=== PATIENT | male | born 1955 | race Caucasian/White ===

== ENCOUNTER 2019-07-17 03:00 | Observation (INO) ==
[2019-07-17] MEDS ORDERED: Aspirin 81 MG TAB.CHEW PO ONE (03:15)
--- NOTE | 2019-07-17 03:16 | Emergency Department Note ---
Disposition Clinical Impression: Chest pain Qualifiers: Chest pain type: unspecified Qualified Code(s): R07.9 - Chest pain, unspecified Disposition: Admitted As Inpatient Condition: Fair Time of Disposition: 05:59 Chest Pain HPI - General Chief Complaint: ED Chest Pain Stated Complaint: chest pain Time Seen by Provider: 07/17/19 03:05 Source: patient, family, EMS Mode of arrival: EMS Limitations: no limitations Vital Signs Reviewed: Yes Nursing Notes Reviewed: Yes - History of Present Illness HPI Narrative: 63-year-old male presents for evaluation of chest pain. Has history of Parkinson's. Says the pain is substernal nonradiating. 2 days ago on July 15 he had episode of chest pain that took him to the ground. He felt better and did not want to come to the emergency room. His states he has a significant history of anxiety. Patient had a Eileen procedure several years ago and his reflux has been improved since then. He states is not anything spicy or greasy for dinner but had a bowl of cereal. He denies any diaphoresis or shortness of breath. Pt complaint: chest pain Duration: constant Severity: moderate Severity scale (1-10): 5 Associated symptoms: Denies: nausea, vomiting, diaphoresis, dyspnea Treatments prior to arrival chest pain: aspirin (via EMS) - Related Data Home Medications Medication Instructions Recorded Confirmed Allopurinol [Zyloprim 100 MG] 100 mg PO BID 01/31/16 01/27/19 Amitriptyline [Elavil] 75 mg PO HS 01/31/16 01/27/19 Aspirin [Adult Low Dose Aspirin EC] 81 mg PO QPM 01/31/16 01/27/19 Escitalopram [Lexapro] 20 mg PO DAILY 01/31/16 01/27/19 Fluticasone Propionate Nasal 100 mcg NS QPM 01/31/16 01/27/19 [Flonase] LORazepam [Ativan] 1 mg PO TID 01/31/16 01/27/19 Losartan Potassium [Cozaar] 100 mg PO DAILY 01/31/16 01/27/19 Pantoprazole Sodium 40 mg PO BID 10/18/17 01/27/19 Carbidopa/Levodopa 25/100 [Sinemet 0.5 each PO 08,14,20 01/27/19 01/27/19 25/100] Previous Rx's Medication Instructions Recorded Ondansetron ODT [Zofran ODT] 4 mg SL Q6HR PRN #30 tab.rapdis 10/19/17 Fluconazole [Diflucan] 100 mg PO DAILY #7 tablet 01/29/19 Nystatin [Nystatin Suspension] 5 ml PO QID #120 ml 01/29/19 Allergies Allergy/AdvReac Type Severity Reaction Status Date / Time bee venom protein (honey bee) Allergy Anaphylaxis Verified 07/17/19 04:05 codeine Allergy Nausea Verified 07/17/19 04:05 All systems ED: reviewed and negative except as stated. Constitutional: Denies: fever, chills, weakness, weight change Eyes: Denies: eye pain, eye discharge, vision change ENT ED: Denies: ear pain, throat pain, dental pain, hearing loss, epistaxis, congestion, dysphagia Cardiovascular: Reports: chest pain. Denies: palpitations, dyspnea on exertion, edema, syncope Respiratory: Denies: cough, dyspnea, wheezes, hemoptysis, stridor Gastrointestinal: Denies: abdominal pain, nausea, vomiting, diarrhea, constipation, hematemesis, melena, hematochezia Genitourinary: Denies: urgency, dysuria, frequency, hematuria Musculoskeletal: Denies: back pain, neck pain, arthralgia, myalgia Integumentary: Denies: rash, abrasion, lesions Neurological: Denies: headache, weakness, numbness, paresthesias, confusion, abnormal gait, vertigo Psychiatric: Denies: anxiety, depression, suicidal thoughts, homicidal thoughts, auditory hallucinations, visual hallucinations Endocrine: Denies: fatigue Hematological/Lymphatic: Denies: easy bleeding, easy bruising Allergic/Immunologic: Denies: facial swelling, urticaria Chest Pain PMH - Past Medical History Medical history: Reports: GERD, hyperlipidemia, hypertension, other Surgical history: Reports: knee replacement Psychiatric history: Reports: anxiety, depression - Social History Smoking Status: Never smoker Alcohol use: Reports: none Drug use: Reports: none Physical Exam - General Limitations: no limitations General appearance: alert - Head Head exam: atraumatic, normocephalic, normal inspection - Eye Eye exam: Present: normal appearance, PERRL, EOMI - ENT ENT exam: normal exam, normal oropharynx, mucous membranes moist - Neck Neck exam: Present: normal inspection, full ROM, trachea midline - Respiratory Respiratory exam: Present: normal lung sounds bilaterally. Absent: respiratory distress - Cardiovascular Cardiovascular exam: Present: regular rate, normal rhythm, normal heart sounds - Abdominal Exam Abdominal exam: Present: soft, Non-Tender. Absent: tenderness, distention, guarding, rebound, rigidity - Extremities Exam Extremities exam: Present: normal inspection, full ROM. Absent: tenderness, pedal edema - Back Exam Back exam: Present: normal inspection, full ROM. Absent: tenderness, CVA tenderness (R), CVA tenderness (L) - Neurological Exam Neurological exam: Present: alert, oriented X3, CN II-XII intact - Psychiatric Psychiatric exam: Present: normal affect, normal mood. Absent: depressed - Skin Skin exam: Present: warm, dry, intact, normal color Course Course Narrative: Patient was placed in examination room, H&P obtained, nurse's notes reviewed. Patient's pain was down to 34 upon arrival. He oriented aspirin in route by EMS. Patient was given 3 additional J glycerin sublingual and his pain completely resolved. He has a history of reflux in the past with a Eileen procedure also given Pepcid 20 mg IV push. Patient EKG did not show any significant abnormalities. Troponin was normal. Patient admitted to the hospital for further observation and treatment. To Dr. Workman - Consultations Consultation #1: Dr. Workman will admit the patient. Time: 06:00 Vital Signs Temperature 98.0 F 07/17/19 03:06 Pulse Rate 82 07/17/19 03:06 Respiratory Rate 16 07/17/19 03:06 Blood Pressure 166/101 07/17/19 03:06 O2 Sat by Pulse Oximetry 99 07/17/19 03:06 Temperature 98.0 F 07/17/19 03:06 Pulse Rate 81 07/17/19 03:58 Respiratory Rate 15 07/17/19 03:58 Blood Pressure 124/87 07/17/19 03:58 O2 Sat by Pulse Oximetry 97 07/17/19 03:58 Oxygen Delivery Oxygen Delivery Room Air Chest Pain - Medical Records Medical records reviewed: Yes I reviewed the patient's medical records. - Lab Data Lab results reviewed: Yes I reviewed the patient's lab results. Result diagrams: 07/17/19 03:00 07/17/19 03:00 Lab Results 07/17/19 07/17/19 07/17/19 Range/Units 03:00 03:00 03:00 WBC 8.6 (4.3-11.1) K/mcL RBC 4.50 (4.19-5.50) M/mcL Hgb 14.3 (12.9-16.9) g/dL Hct 41.5 (37.5-50.1) % MCV 92.2 (83.0-100.0) fL MCH 31.8 (28.0-33.3) pg MCHC 34.5 (31.6-35.5) g/dL RDW 12.2 (11.5-14.5) % Plt Count 277 (140-400) K/mcL MPV 9.2 L (9.4-12.4) fL Immature Gran % 0.2 (0-4) % Seg Neutrophils % 57.1 % Lymphocytes % 31.9 % Monocytes % 7.9 % Eosinophils % 2.2 % Basophils % 0.7 % Neutrophils # 4.9 (1.6-8.9) K/mcL Lymphocytes # 2.8 (0.6-4.6) K/mcL Monocytes # 0.7 (0.0-1.3) K/mcL Eosinophils # 0.2 (0.0-0.6) K/mcL Basophils # 0.1 (0.0-0.2) K/mcL PT 11.5 (9.4-12.1) Seconds INR 1.0 APTT 31.0 (26.0-36.0) Seconds Sodium (136-145) mEq/L Potassium (3.5-5.1) mEq/L Chloride (98-107) mEq/L Carbon Dioxide (23-29) mEq/L BUN (8-23) mg/dL Creatinine (0.70-1.30) mg/dL Est GFR ( Amer) (> 60) Est GFR (Non-Af Amer) (> 60) BUN/Creatinine Ratio (6-26) Glucose (70-105) mg/dL Calculated Osmolality (280-300) Calcium (8.6-10.3) mg/dL Troponin I (< 0.04) ng/mL B-Natriuretic Peptide 50 (Less than 100) pg/mL Lipase (11-82) Units/L Urine Color (Yellow) Urine Clarity (Clear) Urine pH (5.0-8.0) pH Units Ur Specific [place] (1.010-1.025) Urine Protein (Neg-Trace) mg/dL Urine Glucose (UA) (Normal) mg/dL Urine Ketones (Negative) mg/dL Urine Blood (Negative) Urine Nitrite (Negative) Urine Bilirubin (Negative) Urine Urobilinogen (Normal) mg/dL Ur Leukocyte Esterase (Negative) Ur Culture Indicated? (NO) 07/17/19 07/17/19 Range/Units 03:00 03:39 WBC (4.3-11.1) K/mcL RBC (4.19-5.50) M/mcL Hgb (12.9-16.9) g/dL Hct (37.5-50.1) % MCV (83.0-100.0) fL MCH (28.0-33.3) pg MCHC (31.6-35.5) g/dL RDW (11.5-14.5) % Plt Count (140-400) K/mcL MPV (9.4-12.4) fL Immature Gran % (0-4) % Seg Neutrophils % % Lymphocytes % % Monocytes % % Eosinophils % % Basophils % % Neutrophils # (1.6-8.9) K/mcL Lymphocytes # (0.6-4.6) K/mcL Monocytes # (0.0-1.3) K/mcL Eosinophils # (0.0-0.6) K/mcL Basophils # (0.0-0.2) K/mcL PT (9.4-12.1) Seconds INR APTT (26.0-36.0) Seconds Sodium 131 L (136-145) mEq/L Potassium 3.9 (3.5-5.1) mEq/L Chloride 94 L (98-107) mEq/L Carbon Dioxide 31 H (23-29) mEq/L BUN 6 L (8-23) mg/dL Creatinine 1.01 (0.70-1.30) mg/dL Est GFR ( Amer) > 60 (> 60) Est GFR (Non-Af Amer) > 60 (> 60) BUN/Creatinine Ratio 6 (6-26) Glucose 100 (70-105) mg/dL Calculated Osmolality 270 L (280-300) Calcium 9.7 (8.6-10.3) mg/dL Troponin I < 0.03 (< 0.04) ng/mL B-Natriuretic Peptide (Less than 100) pg/mL Lipase 10 L (11-82) Units/L Urine Color Yellow (Yellow) Urine Clarity Clear (Clear) Urine pH 7.5 (5.0-8.0) pH Units Ur Specific [place] 1.009 L (1.010-1.025) Urine Protein Negative (Neg-Trace) mg/dL Urine Glucose (UA) Normal (Normal) mg/dL Urine Ketones Negative (Negative) mg/dL Urine Blood Negative (Negative) Urine Nitrite Negative (Negative) Urine Bilirubin Negative (Negative) Urine Urobilinogen Normal (Normal) mg/dL Ur Leukocyte Esterase Negative (Negative) Ur Culture Indicated? NO (NO) - Radiology Data Radiology results reviewed: Yes I reviewed the patient's radiology results. KUB X-Ray 07/17/19 03:44 IMPRESSION: No significant stool volume. D/ / Charli Ricci / Charli Ricci Interpreting Provider: Charli Ricci Chest X-Ray 07/17/19 03:49 IMPRESSION: No acute findings. D/ / Charli Ricci / Charli Ricci Interpreting Provider: Charli Ricci - EKG Data EKG attestation: Yes I reviewed and interpreted this EKG. EKG results narrative: EKG is reviewed and interpreted by me normal sinus 1 beats minute left axis, no acute ST elevations normal MS interval, interventricular conduction delay noted No acute ST elevations Heart Score - Score History: Moderately Suspicious EKG: Normal Age: 45-65 Risk Factors: No risk factors known Troponin: Less than normal limit HEART Score Total: 2 Critical Care Time Critical Care Time: Yes Total Critical Care Time: 30 Attestation: KUB X-Ray 07/17/19 03:44 IMPRESSION: No significant stool volume. D/ / Charli Ricci / Charli Ricci Interpreting Provider: Charli Ricci Chest X-Ray 07/17/19 03:49 IMPRESSION: No acute findings. D/ / Charli Ricci / Charli Ricci Interpreting Provider: Charli Ricci The high probability of a clinically significant, sudden or life threatening deterioration of the patient's condition required my full and direct attention, intervention and personal management.
[2019-07-17] MEDS ORDERED: Nitroglycerin 0.4 MG TAB.SUBL SL ONE (03:25)
[2019-07-17 03:30] LABS: Basophils # 0.1 K/mcL (0.0-0.2); Basophils % 0.7 %; Eosinophils # 0.2 K/mcL (0.0-0.6); Eosinophils % 2.2 %; Hematocrit 41.5 % (37.5-50.1); Hemoglobin 14.3 g/dL (12.9-16.9); Immature Granulocytes % 0.2 % (0-4); Lymphocytes # 2.8 K/mcL (0.6-4.6); Lymphocytes % 31.9 %; Mean Corpuscular HGB Conc 34.5 g/dL (31.6-35.5); Mean Corpuscular Hemoglobin 31.8 pg (28.0-33.3); Mean Corpuscular Volume 92.2 fL (83.0-100.0); Mean Platelet Volume 9.2 fL (9.4-12.4); Monocytes # 0.7 K/mcL (0.0-1.3); Monocytes % 7.9 %; Neutrophils # 4.9 K/mcL (1.6-8.9); Platelet Count 277 K/mcL (140-400); Red Cell Distribution Width 12.2 % (11.5-14.5); Segmented Neutrophils % 57.1 %; White Blood Count 8.6 K/mcL (4.3-11.1)
[2019-07-17 03:42] LABS: Prothrombin Time 11.5 Seconds (9.4-12.1)
[2019-07-17 03:52] LABS: BUN/Creatinine Ratio 6 (6-26); Blood Urea Nitrogen 6 mg/dL (8-23); Calcium 9.7 mg/dL (8.6-10.3); Carbon Dioxide 31 mEq/L (23-29); Chloride 94 mEq/L (98-107); Glucose 100 mg/dL (70-105); Lipase 10 Units/L (11-82); Osmolality,Calculated 270 (280-300); Potassium 3.9 mEq/L (3.5-5.1); Sodium 131 mEq/L (136-145); eGFR For African Americans > 60 (> 60); eGFR For Non-African Americans > 60 (> 60)
[2019-07-17 03:52] LABS: Bilirubin,Urine Negative (Negative); Blood,Urine Negative (Negative); Clarity,Urine Clear (Clear); Color,Urine Yellow (Yellow); Glucose,Urine (UA) Normal (Normal); Ketones,Urine Negative (Negative); Leukocyte Esterase,Urine Negative (Negative); Nitrite,Urine Negative (Negative); PH,Urine 7.5 pH Units (5.0-8.0); Protein,Urine Negative (Neg-Trace); Specific Gravity,Urine 1.009 (1.010-1.025); Urobilinogen,Urine Normal (Normal)
[2019-07-17 03:53] LABS: Troponin I < 0.03 ng/mL (< 0.04)
[2019-07-17] MEDS ORDERED: Famotidine 20 MG/2 ML VIAL IVP ONE (04:05)
[2019-07-17] MEDS ORDERED: Nitroglycerin 1 INCH/GM PACKET TP ONE (05:57)
[2019-07-17] MEDS ORDERED: *HR* Promethazine 25 MG/ML VIAL IVP PRN (07:42)
[2019-07-17] MEDS ORDERED: Ondansetron 4 MG/2 ML VIAL IVP PRN (07:42)
[2019-07-17] MEDS ORDERED: Naloxone 0.4 MG/ML INJ IVP PRN (07:42)
[2019-07-17] MEDS ORDERED: Acetaminophen 325 MG TABLET PO PRN (07:42)
[2019-07-17] MEDS ORDERED: traMADol 50 MG TABLET PO PRN (07:42)
[2019-07-17] MEDS ORDERED: Mag Hydrox/Al Hydrox/Simeth 30 ML UDC PO PRN (07:42)
--- NOTE | 2019-07-17 07:54 | Internal Med History&Physical ---
Date of Encounter: 07/17/19 Time of Encounter: 07:46 Internal Medicine - H&P: HPI Admitted From: Home Plans for Post Hospital Care: Home History of present illness: Mr. Cuevas is a 63 year old male with past medical history significant for hyperten clary, hyperlipidemia, GERD status post Eileen procedure, Parkinson's disease, and anxiety presented with chest pain. It is started about 2 days ago, located at the middle of the chest, burning like, intermittent, last about several hours and then resolved by itself, 4 to 5 out of 10 in intensity, nonradiating, no obvious alleviating or aggravating factors. Patient reported history of GERD, he underwent Eileen procedure one half years ago which partially relieved heartburn, in addition, he also takes PPI at home. reported patient had a history of anxiety, he takes Ativan 3 times a day at home. Patient reported absence of fever, chills, or night sweats. He has no shortness of breath, palpitation, or lightheadedness. In the ED, patient vital signs were stable, labs were unremarkable including negative troponin, EKG has no acute ST-T change, chest x-ray was unremarkable. He received 1 dose of aspirin and a nitroglycerin, patient reported nitroglycerin resolved chest pain. His symptoms are concerning for ACS, therefore, he was admitted for further evaluation and management. CODE STATUS discussed with patient, he will be full code while in the hospital. Past Med Surg Social Fam HX - Past Medical History Medical history: GERD, hyperlipidemia, hypertension, other Additional medical history: PARKINSONS Psychiatric history: anxiety, depression - Past Surgical History Surgical History: knee replacement Additional surgical history: Back Surgery - Social History Smoking Status: Never smoker Smokeless Tobacco Status: No Alcohol use: none Drug use: none - Family History Mother Living Status: Hx Family Cancer: Yes Father Living Status: Hx Family Cardiac Disorders: Yes (hypertension, cardiomegaly) Hx Family Cancer: Yes Internal Medicine - H&P: Meds Allopurinol [Zyloprim 100 MG] 100 mg PO BID 01/31/16 [History] Amitriptyline [Elavil] 75 mg PO HS 01/31/16 [History] Aspirin [Adult Low Dose Aspirin EC] 81 mg PO QPM 01/31/16 [History] Escitalopram [Lexapro] 20 mg PO DAILY 01/31/16 [History] Fluticasone Propionate Nasal [Flonase] 100 mcg NS QPM 01/31/16 [History] LORazepam [Ativan] 1 mg PO TID 01/31/16 [History] Losartan Potassium [Cozaar] 100 mg PO DAILY 01/31/16 [History] Pantoprazole Sodium 40 mg PO BID 10/18/17 [History] Ondansetron ODT [Zofran ODT] 4 mg SL Q6HR PRN #30 tab.rapdis 10/19/17 [Rx] Carbidopa/Levodopa 25/100 [Sinemet 25/100] 0.5 each PO 08,14,20 01/27/19 [History] Fluconazole [Diflucan] 100 mg PO DAILY #7 tablet 01/29/19 [Rx] Nystatin [Nystatin Suspension] 5 ml PO QID #120 ml 01/29/19 [Rx] Allergy/AdvReac Type Severity Reaction Status Date / Time bee venom protein (honey bee) Allergy Anaphylaxis Verified 07/17/19 04:05 codeine Allergy Nausea Verified 07/17/19 04:05 All Systems PM: A 10-system review of systems was performed and is negative for pertinent findin gs except as documented above in the HPI. Review of systems: REVIEW OF SYSTEMS: CONSTITUTIONAL: No weight loss, fever, chills, weakness or fatigue. HEENT: Eyes: No visual loss, blurred vision, double vision or yellow sclerae. Ears, Nose, Throat: No hearing loss, sneezing, congestion, runny nose or sore throat. SKIN: No rash or itching. CARDIOVASCULAR: see HPI. RESPIRATORY: No shortness of breath, cough or sputum. GASTROINTESTINAL: No anorexia, nausea, vomiting or diarrhea. No abdominal pain or blood. GENITOURINARY: No dysuria, urgency, or frequency. NEUROLOGICAL: No headache, dizziness, syncope, paralysis, ataxia, numbness or tingling in the extremities. No change in bowel or bladder control. MUSCULOSKELETAL: No muscle, back pain, joint pain or stiffness. HEMATOLOGIC: No anemia, bleeding or bruising. LYMPHATICS: No enlarged nodes. No history of splenectomy. PSYCHIATRIC: No history of depression or anxiety. ENDOCRINOLOGIC: No reports of sweating, cold or heat intolerance. No polyuria or polydipsia. - Constitutional Vitals: Temp Pulse Resp BP Pulse Ox 98.1 F 76 18 152/94 96 07/17/19 07:29 07/17/19 07:29 07/17/19 07:29 07/17/19 07:29 07/17/19 07:29 General appearance: Present: A&O X 3 Exam: PHYSICAL EXAMINATION: GENERAL APPEARANCE: The patient is alert, oriented and in no acute distress. HEENT: Head is normocephalic. The sinuses are nontender. Pupils are equal and reactive. The nares are patent. Oropharynx clear without lesions. NECK: Supple without lymphadenopathy. HEART: Regular rate and rhythm. LUNGS: No crackles or wheezes are heard. ABDOMEN: Soft, nontender, nondistended with good bowel sounds heard. Inguinal area is normal. EXTREMITIES: Without cyanosis, clubbing or edema. NEUROLOGICAL: Gross nonfocal. SKIN: Warm and dry without any rash. Internal Med - H&P Results - Labs CBC & Chem 7: 07/17/19 03:00 07/17/19 03:00 Labs: Short CBC 07/17/19 Range/Units 03:00 WBC 8.6 (4.3-11.1) K/mcL Hgb 14.3 (12.9-16.9) g/dL Hct 41.5 (37.5-50.1) % Plt Count 277 (140-400) K/mcL Neutrophils # 4.9 (1.6-8.9) K/mcL BMP 07/17/19 03:00 Sodium 131 L Potassium 3.9 Chloride 94 L Carbon Dioxide 31 H BUN 6 L Creatinine 1.01 Glucose 100 Calcium 9.7 Cardiac Enzymes 07/17/19 Range/Units 03:00 Troponin I < 0.03 (< 0.04) ng/mL Urine 07/17/19 Range/Units 03:39 Urine Color Yellow (Yellow) Urine Clarity Clear (Clear) Urine pH 7.5 (5.0-8.0) pH Units Ur Specific [place] 1.009 L (1.010-1.025) Urine Protein Negative (Neg-Trace) mg/dL Urine Glucose (UA) Normal (Normal) mg/dL - Impressions ITS Impressions KUB X-Ray 07/17/19 03:44 IMPRESSION: No significant stool volume. D/ / Charli Ricci / Charli Ricci Interpreting Provider: Charli Ricci Chest X-Ray 07/17/19 03:49 IMPRESSION: No acute findings. D/ / Charli Ricci / Charli Ricci Interpreting Provider: Charli Ricci - Assessment and Plan (1) Chest pain Current Visit: Yes Status: Acute Assessment and plan: The characteristic of the chest pain is not typical for ACS, however, due to his CV risk factors, we will pursue cardiac workup including serial troponin, echocardiogram, and stress nuclear test. Patient received 1 dose of aspirin, he takes daily aspirin at home, we will continue. We will continue telemetry monitoring, and EKG as needed. Qualifiers: Chest pain type: unspecified Qualified Code(s): R07.9 - Chest pain, unspecified (2) Anxiety Current Visit: No Status: Chronic Assessment and plan: Anxiety might play a role in her chest pain, will continue home medication was verified, continue monitoring. (3) GERD (gastroesophageal reflux disease) Current Visit: No Status: Chronic Assessment and plan: Continue PPI. Qualifiers: Esophagitis presence: without esophagitis Qualified Code(s): K21.9 - Gastro -esophageal reflux disease without esophagitis (4) Major depressive disorder, recurrent severe without psychotic features Current Visit: No Status: Acute Assessment and plan: denies suicidal ideation, continue home medications. (5) HTN (hypertension) Current Visit: No Status: Chronic Assessment and plan: Continue monitoring BP, continue home medication. Qualifiers: Hypertension type: unspecified Qualified Code(s): I10 - Essential (primary) hypertension (6) DVT prophylaxis Current Visit: Yes Status: Acute Assessment and plan: Heparin subcutaneous. - Time Spent With Patient Total time spent is greater than 50% in coordination of care (as documented) at patient's floor/unit and/or counseling patient: Greater than 35 minutes
[2019-07-17] MEDS ORDERED: Regadenoson 0.4 MG/5 ML SYRINGE IVP ONE (08:17)
[2019-07-17 09:01] LABS: Chol/HDL Ratio 4.1 (0-4.9)
[2019-07-17] MEDS: *HR* LORazepam 1 MG TABLET PO PRN ×2 (09:47→20:50)
--- NOTE | 2019-07-17 17:18 | Acute Care Surgery Event Note ---
Date of Encounter: 07/17/19 Time of Encounter: 17:05 Pt with history of Eileen in 09/2017. His follow-up UGI was consistent with expected postoperative findings. KUB and CXR 07/17/2019 do not have any findings of hiatal hernia. He was admitted for burning CP and underwent a stress test today which was positive for a small mild intensity apical perfusion defect. He states symptoms have presently resolved. He denies trouble swallowing, heartburn, or reflux. He states he has had worsening BP and anxiety since being diagnosed with Parkinson's and has had constipation for the last several months. Per patient report, he told the hospitalist that he wanted his Eileen reversed because of the constipation. Surgery was asked to see the patient. Upon my assessment and review with patient he reports admission to the hospital for an acute episode of burning chest pain for which he underwent a stress test. He reports severe anxiety and increase in use of lorazepam related. His son is at bedside and endorses pt's statements. Pt states no difficulty swallowing, heartburn, reflux, abdominal pain, nausea, or vomiting. He does endorse constipation. He does not follow a bowel regimen. Reviewed with patient and family that he does not have any complaints related to a possible Eileen complication and therefore any acute intervention is not indicated. Further reviewed that he has no indication for a Eileen revision at this time and risk of procedure would outweigh any perceived benefit of relief of constipation. IF in the future he would have any difficulties swallowing, abdominal pain, or painful swallowing he is advised he can follow up as an outpatient with general surgery. He would need to make an appointment with either Dr. Perry, James, or Sejal as Dr. Scales is no longer seeing general surgery patients 2/2 acute care. Surgery will sign off.
[2019-07-17] MEDS ORDERED: Ondansetron ODT 4 MG TAB.RAPDIS SL PRN (17:24)
--- NOTE | 2019-07-17 17:47 | Electrocardiograph Report ---
[address] [address] Test Date: 2019-07-17 Pat Name: Kwame Cuevas Department: EXAM3 Room: 3B Gender: M Application Support Developer: : 1955 Requested By: [id number] Order Number: [id number] Reading MD: Phillip Nash Measurements Intervals [place] Rate: 81 P: -27 [place]: 163 QRS: -19 QRSD: 115 T: 28 QT: 398 QTc: 462 Interpretive Statements Sinus rhythm Nonspecific intraventricular conduction delay Electronically Signed On 07-17-2019 17:45:34 EDT by Phillip Nash
[2019-07-17] MEDS ORDERED: Aspirin Enteric Coated 81 MG Tablet PO SCH (18:00)
[2019-07-17] MEDS ORDERED: Fluticasone Propionate Nasal 50 MCG/SPRAY BOTTLE NS SCH (18:00)
[2019-07-17] MEDS: *HR* Heparin 5,000 UNIT/ML VIAL SQ SCH (18:41)
[2019-07-17] MEDS: *HR* HYDROcodone/Acet 7.5/325 mg TABLET PO PRN (18:42)
[2019-07-18] MEDS: *HR* Heparin 5,000 UNIT/ML VIAL SQ SCH (06:04)
[2019-07-18] MEDS: *HR* LORazepam 1 MG TABLET PO PRN (06:42)
[2019-07-18 08:03] VITALS: BP 154/96
[2019-07-18] MEDS: *HR* HYDROcodone/Acet 7.5/325 mg TABLET PO PRN (08:48)
[2019-07-18] MEDS ORDERED: [UNRECOGNIZED DRUG - OTHER] PO SCH (09:00)
[2019-07-18] MEDS ORDERED: CASCARA SAGRADA PO SCH (09:00)
--- NOTE | 2019-07-18 09:49 | Cardiology Consult Note ---
<Barbara Hagan - Last Filed: 07/18/19 09:44> Date of Encounter: 07/18/19 Time of Encounter: 08:30 Assessment and Plan (1) Atypical chest pain Current Visit: Yes Status: Acute Per cardiology: -Admitted with atypical chest pain. -Reports able to use stationary bike for 25 minutes without angina. -NO acute ECG changes noted. -Troponins negative. -TTE with LVEF preserved, no SWMA> -Stress test with small sized, mild intensity apical perfusion defect possibly related to mild ischemia (SDS 2). -Denies current chest pain. -On asa, BB. -With atypical chest pain and mildly abnormal stress test, recommend medical mangement. -Will add statin. -Cardiology will sign off, will arrange outpatient follow up. (2) Abnormal stress test Current Visit: Yes Status: Acute Per cardiology: -See chest pain Discussion w patient/family: The assessment and plan as outlined above was discussed with the patient who expressed understanding and agreement. All questions were answered. Thank you for involving us in the care of your patient. Please call with any questions. Discussed and reviewed with Dr.John Osullivan. History of Present Illness Consult date: 07/17/19 Requesting physician: Elba Ritter Consult reason: abnormal stress test Chief complaint: chest burning History of present illness: Mr. Cuevas is a 63 year old male with a relevant past medical history of GERD, gastritis, gout, HTN, HLD, depression, anxiety, MARIO on CPAP, who was admitted with chest burning. Patient underwent stress test, which is mildly abnormal. Patient states he had chest burning while laying in bed. Patient states symptoms are similar to his previous GERD. Patient denies exertional angina. Reports able to use stationary bike for 25 minutes, without anginal symptoms. Patient deneis current chest pain or burning. Patient denies shortness of breath or fatigue. Past Med Surg Social Fam HX - Past Medical History Attestation: Yes The following information was validated with the patient. Source: patient, old records reviewed Medical history: GERD, hyperlipidemia, hypertension, other Additional medical history: PARKINSONS Psychiatric history: anxiety, depression - Past Surgical History Surgical History: knee replacement Additional surgical history: Back Surgery - Social History Smoking Status: Never smoker Smokeless Tobacco Status: No Alcohol use: none Drug use: none - Family History Mother Living Status: Hx Family Cancer: Yes Father Living Status: Hx Family Cardiac Disorders: Yes (hypertension, cardiomegaly) Hx Family Cancer: Yes Medications and Allergies Allopurinol [Zyloprim 100 MG] 100 mg PO DAILY 01/31/16 [History] Escitalopram [Lexapro] 20 mg PO DAILY 01/31/16 [History] Fluticasone Propionate Nasal [Flonase] 1 - 2 spr NS QPM 01/31/16 [History] LORazepam [Ativan] 1 mg PO TID 01/31/16 [History] Pantoprazole Sodium 40 mg PO BID 10/18/17 [History] Aromatic Cascara Fluid Extract [Cascara Sagrada] 1 cap PO DAILY 07/17/19 [History] Clomipramine HCl 75 - 150 mg PO HS 07/17/19 [History] DiphenhydraMINE [Benadryl] 25 mg PO Q6HR PRN 07/17/19 [History] Hydrocodone/Acetaminophen [Hydrocodone-Acetamin 7.5-300] 1 each PO Q6HR PRN 07/17/19 [History] Ondansetron ODT [Zofran ODT] 4 mg SL Q8HR PRN 07/17/19 [History] Propranolol [Inderal] 10 mg PO TID 07/17/19 [History] Amitriptyline HCl 75 mg PO HS 07/18/19 [History] Aspirin [Lo-Dose Aspirin EC] 81 mg PO QPM 07/18/19 [History] Atorvastatin [Lipitor] 40 mg PO HS #30 tablet 07/18/19 [Rx] Allergy/AdvReac Type Severity Reaction Status Date / Time bee venom protein (honey bee) Allergy Anaphylaxis Verified 07/17/19 04:05 codeine Allergy Nausea Verified 07/17/19 04:05 All Systems Review: The remainder of the systems were reviewed and are negative - Cardiovascular Cardiovascular: as per HPI, chest pain at rest Physical Examination Vital Signs, Last 4 Hours Temp Pulse Resp BP Pulse Ox 07/18/19 07:58 98.1 F 84 15 154/96 97 General: Conversant, No Apparent Distress HEENT: Atraumatic, Normocephaly, Mucus Membranes Moist Neck: No JVD, Normal carotid pulses Cardiac: Reg Rate and Rhythm, Normal S1 and S2, No Murmur Lungs: Normal Breath Sounds, No Wheeze, Rales, Rhonchi Neuro: Alert and responsive, No focal deficits noted Abdomen: Soft, Non-Tender Skin: No rashes noted on visualized skin Musculoskeletal: No Chest Wall Tenderness Extremities: No Clubbing, No Cyanosis, No Edema, Normal Pulses Results 07/17/19 03:00 07/17/19 03:00 Lab Results Impressions Echocardiogram 07/17/19 17:53 Impressions: LVEF 50-55%. Normal LV chamber size, wall thickness and function. Atypical septal motion consistent with bundle branch block. Indeterminate diastolic function. Normal right ventricular structure and function. No evidence of pulmonary hypertension. Interatrial septum is hyperdynamic. There is a small PFO with a right to left shunt with agitated saline. Left Ventricular Wall Motion: Rest Echo Findings All wall segments showed normal motion. Findings: Study Quality * Technically adequate exam. ECG Findings * Sinus rhythm with BBB. Left Ventricle * LVEF 50-55%. * Normal LV chamber size, wall thickness and function. * Atypical septal motion consistent with bundle branch block. * Indeterminate diastolic function. Right Ventricle * Normal right ventricular structure and function. Left Atrium * Normal left atrial size. Right Atrium * Normal right atrial size. Interatrial Septum * Interatrial septum is hyperdynamic. There is a small PFO with agitated saline. Aortic Valve * Trileaflet aortic valve with normal function. * No aortic stenosis. * No aortic regurgitation. Mitral Valve * Normal mitral valve structure and function. * No mitral regurgitation. * No mitral stenosis. Tricuspid Valve * Normal tricuspid valve structure and function. * Trace tricuspid regurgitation. * No evidence of pulmonary hypertension. Pulmonic Valve * Normal pulmonic valve structure and function. * Trace pulmonic regurgitation. Aorta * Normally sized aortic root. Pericardium * The pericardium appears normal. IVC * Normal IVC dimensions and inspiratory collapse. Pulmonary Artery * Normal visualized portions of the main pulmonary artery. Active Medications Acetaminophen (Tylenol) 650 mg PO Q6HR PRN PRN Reason: Mild Pain/Fever Stop: 01/16/20 07:43 Hydrocodone Bitart/Acetaminophen (Jackson 7.5-325 Mg) 1 tab PO Q6HR PRN PRN Reason: SEVERE PAIN Last Admin: 07/18/19 08:48 Dose: 1 tab Documented by: Al Hydrox/Mg Hydrox/Simethicone (Maalox) 15 ml PO Q6HR PRN PRN Reason: Dyspepsia Stop: 01/16/20 07:43 Allopurinol (Zyloprim) 100 mg PO DAILY [facility] Stop: 01/17/20 09:01 Last Admin: 07/18/19 08:46 Dose: 100 mg Documented by: Aspirin (Aspirin Ec) 81 mg PO QPM [facility] Stop: 01/16/20 18:01 Last Admin: 07/17/19 18:42 Dose: 81 mg Documented by: Clomipramine HCl (Anafranil) 75 mg PO HS [facility] Stop: 01/16/20 21:01 Last Admin: 07/17/19 20:50 Dose: 75 mg Documented by: Diphenhydramine HCl (Benadryl) 25 mg PO Q6HR PRN PRN Reason: Hives Stop: 01/16/20 17:25 Docusate Sodium (Colace) 100 mg PO BID [facility] Stop: 01/16/20 09:01 Last Admin: 07/18/19 08:46 Dose: 100 mg Documented by: Escitalopram Oxalate (Lexapro) 20 mg PO DAILY [facility] Stop: 01/17/20 09:01 Last Admin: 07/18/19 08:46 Dose: 20 mg Documented by: Fluticasone Propionate (Flonase) 100 mcg NS QPM [facility]; Protocol Stop: 01/16/20 18:01 Last Admin: 07/17/19 18:42 Dose: 100 mcg Documented by: Heparin Sodium (Porcine) (Heparin) 5,000 unit SQ Q12HCO [facility]; Protocol Stop: 01/16/20 18:01 Last Admin: 07/18/19 06:04 Dose: 5,000 unit Documented by: Lorazepam (Ativan) 1 mg PO TID PRN PRN Reason: Anxiety Stop: 01/16/20 08:53 Last Admin: 07/18/19 06:42 Dose: 1 mg Documented by: Naloxone HCl (Narcan) 0.4 mg IVP Q2MPRN PRN PRN Reason: SEE COMMENTS Stop: 01/16/20 07:43 Omeprazole (Prilosec) 20 mg PO BIDAC [facility] Stop: 01/16/20 21:01 Last Admin: 07/18/19 06:04 Dose: 20 mg Documented by: Ondansetron HCl (Zofran) 4 mg IVP Q8HR PRN PRN Reason: Nausea And Vomiting Stop: 01/16/20 07:43 Ondansetron HCl (Zofran Odt) 4 mg SL Q8HR PRN PRN Reason: Nausea Stop: 01/16/20 17:25 Promethazine HCl (Phenergan) 12.5 mg IVP Q6HR PRN PRN Reason: Nausea And Vomiting Stop: 01/16/20 07:43 Propranolol HCl (Inderal) 10 mg PO TID TAMMY Stop: 01/16/20 21:01 Last Admin: 07/18/19 08:46 Dose: 10 mg Documented by: Tramadol HCl (Ultram) 50 mg PO Q6HR PRN PRN Reason: Moderate Pain Stop: 01/16/20 07:43 Laboratory Tests 07/17/19 07/17/19 07/17/19 03:00 08:15 13:26 Troponin I < 0.03 < 0.03 < 0.03 - Imaging and Cardiology Chest Xray: report reviewed Stress Test: report reviewed Echo: report reviewed - EKG Interpretation EKG results cardiology: personally reviewed (ECG with SR, HR 81.), other (Telemetry reviewed with average HR previous 12 horus noted to be 79, SR. PVCs, PACs noted.) Consult Discharge Plan - Plan Referrals: [facility] [Provider Group] (Office will call with date and time of appointment. ) Noa Staton MD [Primary Care Provider] - (Appointment has been requested. ) Prescriptions: Atorvastatin [Lipitor] 40 mg PO HS #30 tablet Transmission Status: Received by [facility] <OsullivanDelfino taylor Lee - Last Filed: 07/18/19 10:35> Date of Encounter: 07/18/19 - Attending Attestation I have personally performed a face to face evaluation on this patient. I have reviewed and agree with the care plan. History and Exam by me shows: Presented with GERD symptoms. Denies and cardiac complaint. Stress test borderline abnormal. As he does not appear to have cardiac symptoms would have pt. fu as outpt. , which is also his preference. Assessment and Plan Discussion w patient/family: The assessment and plan as outlined above was discussed with the patient and/or family members who expressed understanding and agreement. All questions were answered. Thank you for involving us in the care of your patient. Please call with any questions. History of Present Illness History of present illness: Mr. Cuevas is a 63 year old male All Systems Review: The remainder of the systems were reviewed and are negative Physical Examination Vital Signs, Last 4 Hours Temp Pulse Resp BP Pulse Ox 07/18/19 07:58 98.1 F 84 15 154/96 97 Results 07/17/19 03:00 07/17/19 03:00 Lab Results 07/17/19 13:26 Troponin I < 0.03
--- NOTE | 2019-07-18 10:08 | Discharge Summary ---
- NOTES TO OUTPATIENT PROVIDER Notes to Outpatient Provider: f/u with PCP within a week. f/u with cardiology within a month. Date of Encounter: 07/18/19 Time of Encounter: 10:05 - Discharge Diagnosis (1) Chest pain Priority: Primary Status: Acute Qualifiers: Chest pain type: unspecified Qualified Code(s): R07.9 - Chest pain, unspecified (2) Anxiety Priority: Secondary Status: Chronic (3) GERD (gastroesophageal reflux disease) Priority: Secondary Status: Chronic Qualifiers: Esophagitis presence: without esophagitis Qualified Code(s): K21.9 - Gastro-esophageal reflux disease without esophagitis (4) Major depressive disorder, recurrent severe without psychotic features Priority: Secondary Status: Chronic (5) HTN (hypertension) Priority: Secondary Status: Chronic Qualifiers: Hypertension type: unspecified Qualified Code(s): I10 - Essential (primary) hypertension (6) DVT prophylaxis Priority: Primary Status: Acute Hospital course: Mr. Cuevas is a 63 year old male with past medical history significant for hypertension, hyperlipidemia, GERD status post Eileen procedure, Parkinson's disease, and anxiety presented with chest pain. It is started about 2 days ago, located at the middle of the chest, burning like, intermittent, last about orquidea ral hours and then resolved by itself, 4 to 5 out of 10 in intensity, nonradiating, no obvious alleviating or aggravating factors. Patient reported history of GERD, he underwent Eileen procedure one half years ago which partially relieved heartburn, in addition, he also takes PPI at home. reported patient had a history of anxiety, he takes Ativan 3 times a day at home. Serial troponin was negative, EKG has no acute ST-T change, echocardiogram unremarkable. Stress nuclear test showed a small sized, mild intensity apical perfusion defect possibly related to mildly ischemia, cardiology was consulted, statins was added, aspirin and a beta nadege will be continued, recommended medical management and outpatient follow-up. Patient is discharged home today, he will follow-up with PCP and cardiology as scheduled. Discharge discussed with: patient Time spent discussing smoking cessation with patient: more than 10 minutes - Time Spent with Patient Total time spent providing and/or coordinating discharge services: Time spent: Greater than 30 minutes - Discharge Medications Prescriptions: New Atorvastatin [Lipitor] 40 mg PO HS #30 tablet Continued LORazepam [Ativan] 1 mg PO TID Escitalopram [Lexapro] 20 mg PO DAILY Fluticasone Propionate Nasal [Flonase] 1 - 2 spr NS QPM Allopurinol [Zyloprim 100 MG] 100 mg PO DAILY Pantoprazole Sodium 40 mg PO BID Ondansetron ODT [Zofran ODT] 4 mg SL Q8HR PRN PRN Reason: Nausea Clomipramine HCl 75 - 150 mg PO HS DiphenhydraMINE [Benadryl] 25 mg PO Q6HR PRN PRN Reason: Hives Hydrocodone/Acetaminophen [Hydrocodone-Acetamin 7.5-300] 1 each PO Q6HR PRN PRN Reason: pain Propranolol [Inderal] 10 mg PO TID Aromatic Cascara Fluid Extract [Cascara Sagrada] 1 cap PO DAILY Amitriptyline HCl 75 mg PO HS Aspirin [Lo-Dose Aspirin EC] 81 mg PO QPM Home Medications: Allopurinol [Zyloprim 100 MG] 100 mg PO DAILY 01/31/16 [History] Escitalopram [Lexapro] 20 mg PO DAILY 01/31/16 [History] Fluticasone Propionate Nasal [Flonase] 1 - 2 spr NS QPM 01/31/16 [History] LORazepam [Ativan] 1 mg PO TID 01/31/16 [History] Pantoprazole Sodium 40 mg PO BID 10/18/17 [History] Aromatic Cascara Fluid Extract [Cascara Sagrada] 1 cap PO DAILY 07/17/19 [History] Clomipramine HCl 75 - 150 mg PO HS 07/17/19 [History] DiphenhydraMINE [Benadryl] 25 mg PO Q6HR PRN 07/17/19 [History] Hydrocodone/Acetaminophen [Hydrocodone-Acetamin 7.5-300] 1 each PO Q6HR PRN 07/17/19 [History] Ondansetron ODT [Zofran ODT] 4 mg SL Q8HR PRN 07/17/19 [History] Propranolol [Inderal] 10 mg PO TID 07/17/19 [History] Amitriptyline HCl 75 mg PO HS 07/18/19 [History] Aspirin [Lo-Dose Aspirin EC] 81 mg PO QPM 07/18/19 [History] Atorvastatin [Lipitor] 40 mg PO HS #30 tablet 07/18/19 [Rx] Allergies/Adverse Reactions: Allergy/AdvReac Type Severity Reaction Status Date / Time bee venom protein (honey bee) Allergy Anaphylaxis Verified 07/17/19 04:05 codeine Allergy Nausea Verified 07/17/19 04:05 Date of admission: 07/17/19 06:00 Primary care physician: Noa Staton Consults: 07/17/19 08:37 Consult to Nutrition [CONS] Routine Comment: Consulting Provider: NUTRITION Reason for Dietary Consult: MST Score 07/17/19 15:09 Consult to Surgery [CONS] Routine Consulting Provider: Acute Care Surgery Reason for Consult: dysphargia s/p Eileen procedure. Call Completed: Yes 07/17/19 15:10 Consult to Cardiology [CONS] Routine Comment: Consulting Provider: [facility] Reason for Consult: abnormal stress test Call Completed: Yes Anticipated date of discharge: 07/18/19 - Constitutional Vitals: Temp Pulse Resp BP Pulse Ox 98.1 F 84 15 154/96 97 07/18/19 07:58 07/18/19 07:58 07/18/19 07:58 07/18/19 07:58 07/18/19 07:58 General appearance: Present: A&O X 3 Exam: PHYSICAL EXAMINATION: GENERAL APPEARANCE: The patient is alert, oriented and in no acute distress. HEENT: Head is normocephalic. The sinuses are nontender. Pupils are equal and reactive. The nares are patent. Oropharynx clear without lesions. NECK: Supple without lymphadenopathy. HEART: Regular rate and rhythm. LUNGS: No crackles or wheezes are heard. ABDOMEN: Soft, nontender, nondistended with good bowel sounds heard. Inguinal area is normal. EXTREMITIES: Without cyanosis, clubbing or edema. NEUROLOGICAL: Gross nonfocal. SKIN: Warm and dry without any rash. - Patient Status Disposition: Home, Self-Care Condition: Fair Functional capacity at discharge: independent ambulation Overall status at discharge: patient is progressing back to baseline - Discharge Instructions Follow Up With: Noa Staton MD [Primary Care Provider] - (Appointment has been requested. ) - Diet and Activity Activity: increase activity as tolerated Diet: low fat, low cholesterol, low salt diet
== END 2019-07-18 13:20 | disposition home or self-care (01) ==
LOC: EMEROOARM 03:00 → 3BNU 03:00
PROVIDERS: ADMIT Family Medicine; ATTEND Family Medicine